=== PATIENT | male | born 1975 | race Caucasian/White ===

== ENCOUNTER 2017-11-26 16:00 | Emergency (ER) | payer OTHER ==
[~2017-11-26] VITALS: Ht 157.5 cm; Wt 74.8 kg
[~2017-11-26 16:00] MED LIST: ALBUTEROL2.5 MG/0.5 INH; BACTRIM DS TAB1 EACH PO; FLEXERIL PO; LEVAQUIN 750 M750 MG PO; MEDROLDOSEPACK PO; NOHOMEMEDICATIONS; PAXIL10 MG; PERCOCET PO; PROAIR HFA8.5 GM INH
[2017-11-26 16:52] LABS: HEMATOCRIT 43.9 % (42.0-52.0); HEMOGLOBIN 15.3 gm/dL (14.0-18.0); MCH 31.5 pg (26.0-34.0); MCHC 34.7 g/dL (28.0-37.0); MCV 90.7 fL (80.0-100.0); MPV 9.3 fl. (7.2-11.1); NUCLEATED RBCS 0 /100WBC; PLATELET COUNT* 182 thou/uL (150-400); RBC 4.84 mil/uL (4.50-6.00); RDW-CV 13.6 % (10.5-14.5); WBC 21.1 thou/uL (4.0-11.0)
[2017-11-26 16:58] LABS: CALCIUM 9.3 mg/dL (8.5-10.1); CREATININE 0.9 mg/dL (0.6-1.3); POTASSIUM 4.5 mmol/L (3.5-5.1)
[2017-11-26 17:08] LABS: ALBUMIN 3.8 g/dL (3.4-5.0); TOTAL BILIRUBIN 0.8 mg/dL (<0.1-1.0); TOTAL PROTEIN 7.7 g/dL (6.4-8.2)
[2017-11-26 17:16] LABS: ABSOLUTE EOSINOPHILS 0.2 thou/uL (0.0-0.7); ABSOLUTE LYMPHOCYTES 1.1 thou/uL (0.8-5.3); ABSOLUTE MONOCYTES 0.6 thou/uL (0.0-1.2); ABSOLUTE NEUTROPHILS 19.2 thou/uL (1.6-8.1)
[2017-11-26 17:17] LABS: PLATELET ESTIMATE ADEQUATE
[2017-11-26] MEDS ORDERED: AUGMENTIN 875-1 EACH PO (17:52)
[2017-11-26] MEDS ORDERED: PREDNISONE 20 M20 M1 PO (17:52)
[2017-11-26] MEDS ORDERED: LIDOCAINE VISC100 ML PO (17:52)
[2017-11-26 18:13] VITALS: BP 158/91
== END 2017-11-26 18:15 | disposition home or self-care (01) ==
LOC: M.ERS 16:00
PROVIDERS: Nurse Practitioner Family
DX: J02.9 Acute pharyngitis, unspecified (principal); G89.29 Other chronic pain; M54.9 Dorsalgia, unspecified; F17.210 Nicotine dependence, cigarettes, uncomplicated; Z86.14 Personal history of Methicillin resistant Staphylococcus aureus infection; Z88.5 Allergy status to narcotic agent; Z88.6 Allergy status to analgesic agent; Z88.8 Allergy status to other drugs, medicaments and biological substances